=== PATIENT | male | born 1995 | race Caucasian/White ===

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

== ENCOUNTER 2021-05-22 08:40 | Emergency (ER) | payer SELFPAY ==
[~2021-05-22] VITALS: Ht 182 cm; Wt 131.0 kg
--- NOTE | 2021-05-22 09:23 | ED Abdominal Pain ---
General Chief Complaint: Fever-Adult/Adol Stated Complaint: BACK PAIN - FEVER 102 - CONGESTION Source of Information: Patient Exam Limitations: No Limitations (RAFFAELE NELSON STUDENT) History of Present Illness Date Seen by Provider: May 22, 2021 Time Seen by Provider: 09:10 Initial Comments Patient is a 26 year old male who present to the ED with complaints of flank pain, fevers, and epigastric abdominal pain. States the epigastric abdominal pain began approximately 1 week ago. The pain worsens immediately after eating and drinking. Reports taking aleve daily for the last week or so. Describes the pain as dull and achy. Lying still and avoiding eating/drinking decreases the pain. Reports never having anything like this before. Also reports fevers for 3 days up to 102. Reports mild flank pain bilaterally, worse on right. States he's not changed his diet recently although reports eating and drinking less than normal due to not feeling well. Reports decreased urinary output as well. Does not drink or smoke. Denies nausea, vomiting, diarrhea, dysuria, SOB, and chest pain. Timing/Duration: 1 Week Severity/Quality: Moderate Location: Epigastric Radiation: Flank Activities at Onset: None Modifying Factors: Improves With Eating, Improves With Movement, Improves With Palpation Associated Symptoms: Fever/Chills (RAFFAELE NELSON MED STUDENT) Allergies and Home Medications Allergies Coded Allergies: NKANo Known Allergies (Unverified Allergy, Mild, 08/24/08) Patient Home Medication List Home Medication List Reviewed: Yes (DEVANG GORE MD) Atomoxetine Hcl (Strattera) 80 Mg Capsule, (Reported) Entered as Reported by: DARSHANA ADEN on 08/24/081958 Methylphenidate Hcl (Metadate Cd) 40 Mg Cpmp.30.70, (Reported) Entered as Reported by: DARSHANA ADEN on 08/24/081958 Quetiapine Fumarate (Seroquel) 100 Mg Tab, (Reported) Entered as Reported by: DARSHANA ADEN on 08/24/081999 Tramadol HCl (Tramadol HCl) 50 Mg Tablet, 50 MG PO Q6H PRN for PAIN Prescribed by: DEVANG GORE on 05/22/21 1240 Review of Systems Review of Systems Constitutional: see HPI, fever EENTM: No Symptoms Reported; No Blurred Vision, No Double Vision Respiratory: No Symptoms Reported; Denies Cough, Denies Shortness of Air Cardiovascular: No Symptoms Reported; Denies Chest Pain, Denies Edema, Denies Lightheadedness Gastrointestinal: Abdominal Pain; Denies Constipated, Denies Diarrhea, Denies Nausea, Denies Poor Appetite Genitourinary: No Symptoms Reported; Denies Drainage, Denies Frequency Musculoskeletal: no symptoms reported; No back pain, No joint pain Skin: no symptoms reported; No change in color, No change in hair/nails Psychiatric/Neurological: No Symptoms Reported; Denies Anxiety, Denies Depressed Endocrine: No Symptoms Reported; Denies Increased Hunger, Denies Increased Thrist Hematologic/Lymphatic: No Symptoms Reported; Denies Easy Bleeding, Denies Easy Bruising (RAFFAELE NELSON STUDENT) All Other Systems Reviewed Negative Unless Noted: Yes (RAFFAELE NELSON) Past Hcexext-Fcmevz-Uycduw Hx Patient Social History Tobacco Use?: No Smoking Status: Never a Smoker Smokeless Tobacco Frequency: Never a User Use of E-Cig and/or Vaping dev: No Substance use?: No Alcohol Use?: No (RAFFAELE NELSON STUDENT) Immunizations Up To Date Tetanus Booster (TDap): Unknown (RAFFAELE NELSON [employer]) Seasonal Allergies Seasonal Allergies: Yes (RAFFAELE NELSON) Past Medical History Surgeries: No Respiratory: No Cardiac: No Neurological: Yes Traumatic Brain Injury Genitourinary: No Gastrointestinal: No Musculoskeletal: No Endocrine: No HEENT: No Loss of Vision: Denies Hearing Impairment: Denies Cancer: No Psychosocial: No Integumentary: No (REPORTS NUMEROUS LACERATIONS IN HX) Blood Disorders: No (RAFFAELE NELSON STUDENT) Physical Exam Vital Signs Vital Signs - First Documented 05/22/21 08:55 Temp 37.0 Pulse 102 Resp 18 B/P (MAP) 133/84 (100) Pulse Ox 96 (DEVANG GORE MD) Vital Signs Capillary Refill : (RAFFAELE NELSON MED STUDENT) Height/Weight/BMI Height: 5'11.00" Weight: 265lbs. oz. 120.427417ew; 35.15 BMI Method:Stated General Appearance: WD/WN, no apparent distress HEENT: PERRL/EOMI, pharynx normal Neck: non-tender, full range of motion Respiratory: chest non-tender, lungs clear, normal breath sounds Cardiovascular: normal peripheral pulses, regular rate, rhythm, no edema Peripheral Pulses: 2+ Radial Pulses (R), 2+ Radial Pulses (L) Gastrointestinal: normal bowel sounds, soft; No distended, No guarding, No rebound; tenderness (tenderness to palpation in epigastric region) Rectal: deferred Extremities: normal range of motion, non-tender, no pedal edema, no calf tenderness Back: normal inspection, no CVA tenderness Neurologic/Psychiatric: no motor/sensory deficits, alert, normal mood/affect, oriented x 3 Skin: normal color, warm/dry Lymphatic: no adenopathy (Head and neck) (RAFFAELE NELSON MED STUDENT) Progress/Results/Core Measures Results/Orders Lab Results Laboratory Tests Test 05/22/21 09:00 Range/Units White Blood Count 7.4 4.3-11.0 10^3/uL Red Blood Count 5.82 H 4.30-5.52 10^6/uL Hemoglobin 16.7 13.3-17.7 g/dL Hematocrit 49 40-54 % Mean Corpuscular Volume 84 80-99 fL Mean Corpuscular Hemoglobin 29 25-34 pg Mean Corpuscular Hemoglobin Concent 34 32-36 g/dL Red Cell Distribution Width 11.9 10.0-14.5 % Platelet Count 374 130-400 10^3/uL Mean Platelet Volume 9.3 9.0-12.2 fL Immature Granulocyte % (Auto) 0 % Neutrophils (%) (Auto) 49 42-75 % Lymphocytes (%) (Auto) 43 12-44 % Monocytes (%) (Auto) 6 0-12 % Eosinophils (%) (Auto) 2 0-10 % Basophils (%) (Auto) 0 0-10 % Neutrophils # (Auto) 3.6 1.8-7.8 10^3/uL Lymphocytes # (Auto) 3.2 1.0-4.0 10^3/uL Monocytes # (Auto) 0.5 0.0-1.0 10^3/uL Eosinophils # (Auto) 0.1 0.0-0.3 10^3/uL Basophils # (Auto) 0.0 0.0-0.1 10^3/uL Immature Granulocyte # (Auto) 0.0 0.0-0.1 10^3/uL Neutrophils % (Manual) 44 % Lymphocytes % (Manual) 19 % Monocytes % (Manual) 6 % Eosinophils % (Manual) 1 % Basophils % (Manual) 0 % Band Neutrophils 0 % Reactive Lymphocytes 30 % Blood Morphology Comment NORMAL Sodium Level 139 135-145 MMOL/L Potassium Level 3.8 3.6-5.0 MMOL/L Chloride Level 103 98-107 MMOL/L Carbon Dioxide Level 24 21-32 MMOL/L Anion Gap 12 5-14 MMOL/L Blood Urea Nitrogen 10 7-18 MG/DL Creatinine 1.18 0.60-1.30 MG/DL Estimat Glomerular Filtration Rate 88 BUN/Creatinine Ratio 8 Glucose Level 113 H 70-105 MG/DL Calcium Level 10.0 8.5-10.1 MG/DL Corrected Calcium 9.9 8.5-10.1 MG/DL Total Bilirubin 0.7 0.1-1.0 MG/DL Aspartate Amino Transf (AST/SGOT) 36 H 5-34 U/L Alanine Aminotransferase (ALT/SGPT) 49 0-55 U/L Alkaline Phosphatase 39 L 40-136 U/L Total Protein 8.0 6.4-8.2 GM/DL Albumin 4.1 3.2-4.5 GM/DL Lipase 12 8-78 U/L Monoscreen NEGATIVE NEGATIVE Influenza Type A (RT-PCR) Not Detected Not Detecte Influenza Type B (RT-PCR) Not Detected Not Detecte SARS-CoV-2 RNA (RT-PCR) Not Detected Not Detecte (DEVANG GORE MD) My Orders Orders - DEVANG GORE MD Ed Iv/Invasive Line Start (05/22/21:26) Cbc With Automated Diff (05/22/21:26) Comprehensive Metabolic Panel (05/22/21:26) Lipase (05/22/21:26) Covid 19 Inhouse Test (05/22/21:) Influenza A And B By Pcr (05/22/21:) Isolation Central Supply Req (05/22/21:) Ns Iv 1000 Ml (Sodium Chloride 0.9%) (05/22/21 09:45) Ondansetron Injection (Zofran Injectio (05/22/21 09:45) Manual Differential (3/9/22 09:00) Monotest (05/22/21 10:15) Ns Iv 1000 Ml (Sodium Chloride 0.9%) (05/22/21 10:45) Ns Iv 1000 Ml (Sodium Chloride 0.9%) (05/22/21 10:41) Lidocaine 2% Viscous 15 Ml (Xylocaine Vi (05/22/21 11:15) Sucralfate Tablet (Carafate Tablet) (05/22/21 11:15) Antacid Suspension (Mylanta Suspension (05/22/21 11:15) Ketorolac Injection (Toradol Injection) (05/22/21 11:15) Dicyclomine Capsule (Bentyl Capsule) (05/22/21 12:00) Ketorolac Injection (Toradol Injection) (05/22/21 12:00) Chest 1 View, Ap/Pa Only (05/22/21 12:00) Pantoprazole Injection (Protonix Injecti (05/22/21 12:15) (DEVANG GORE MD) Medications Given in ED (DEVANG GORE MD) Vital Signs/I&O 05/22/21 05/22/21 08:55 12:53 Temp 37.0 Pulse 102 88 Resp 18 18 B/P (MAP) 133/84 (100) 122/72 Pulse Ox 96 96 (DEVANG GORE MD) Progress Progress Note #1: Time: 10:59 Progress Note 26yo male to the ER with complaint of abdominal pain, nausea for 1 week, subjective fever. [facility] - tested for flu and covid and strep. All negative, but he said they gave him a "pill" - antibiotic that he only took one dose of - stopped because he "didnt know what it was for". Could not recall the name of it - filled at [facility]. He states eating and drinking make his pain worse. No fevers. Poor urination and BM. No rashes. Mildly sore throat. Not taking any over the counter meds. No prior med history. No surgeries. Family member with "flu" recently. Physical exam remarkable for mild epigastric tenderness. no peritoneal signs. Lungs clear. Dry oral mucosa with mildly erythematous posterior pharynx. Given 2L Fluids in the ER. Zofran and will follow up with a GI cocktail. LAbs reviewed and WNL. VSS. rechecked at this time, and feels "the same". Progress Note #2: Time: 12:03 Progress Note Patient states he got minimal relief from initial toradol and GI cocktail. Points to the very tip of xyphoid as source of pain/painful swallowing. It is very tender to palpation. Sig pain with swallowing. Will give some bentyl and more toradol. Labs reviewed. Chest xray ordered. VSS. possibly esophageal spasm? will add protonix as well. 1231 Chest xray normal. additional meds given. Will send home on PPI, carafate. Im going to give him a little tramadol. Follow up with PCP. Return precautions. No clinical or objective findings to warrant further work up in the ER. Suspect possibly esophagitis/zyphoidalgia vs early ulcer. Will have him continue low dose NSAIDS for now with PPI and take the tramadol. (DEVANG GORE MD) Diagnostic Imaging Diagonstic Imaging: Xray Plain Films/CT/US/NM/MRI: chest Comments [facility], [place] NAME: MARTY SULLIVAN [facility] REC#: [id number] PT STATUS: REG ER : 1995 PHYSICIAN: DEVANG GORE MD ADMIT DATE: 05/22/21/ER Draft Date of Exam:05/22/21 CHEST 1 VIEW, AP/PA ONLY INDICATION: Epigastric pain; painful swallow; fever. COMPARISON: None. FINDINGS: Single frontal view of the chest demonstrates normal heart size and pulmonary vascularity. The lungs are well aerated and clear. No large pleural effusion or pneumothorax is seen. The visualized osseous structures show no acute abnormalities. IMPRESSION: 1. No acute cardiopulmonary process. Dictated on workstation # [id number] Dict: 05/22/21 1214 Trans: 05/22/21 1215 [id number] Interpreted by: ERIKA RUIZ MD Electronically signed by: (DEVANG GORE MD) Departure Impression Primary Impression: Abdominal pain Qualified Codes: R10.13 - Epigastric pain Additional Impression: Xyphoidalgia Disposition: HOME, SELF-CARE Condition: Stable Departure-Patient Inst. Decision time for Depature: 12:37 (DEVANG GORE MD) Referrals: [facility] (PCP/Family) Primary Care Physician Patient Instructions: Abdominal Pain, Adult ED Add. Discharge Instructions: You should take the Aleve, 1 or 2 pills twice a day with food. I would also recommend an over the counter acid marine firer such as generic Prilosec or Pepcid while taking the Aleve. Alternate ice packs with heat to the lower chest are where you are having pain. I have given you a prescription for Tramadol, a pain medication. You can take this every 6 hours as needed for more severe pain. Do not drive and take this medication. Try and push oral fluids. Follow up with a primary care doctor. Return to the ER for any worsening symptoms, blood in your vomit, persistent fever or other new, emergent or concerning symptoms. Scripts Tramadol HCl (Tramadol HCl) 50 Mg Tablet 50 MG PO Q6H PRN for PAIN, #20 TAB 0 Refills Prov: DEVANG GORE MD 05/22/21 Verification and Attestation of Medical Student E/M Service A medical student performed and documented this service in my presence. I reviewed and verified all information documented by the medical student and made modifications to such information, when appropriate. I personally performed the physical exam and medical decision making. Devang Gore, May 22, 2021,11:05 (DEVANG GORE MD) RAFFAELE NELSON MED STUDENT May 22, 2021 09:23 DEVANG GORE MD May 22, 2021 11:04
[2021-05-22 09:38] LABS: BASOPHILS % (AUTO) 0 % (0-10); EOSINOPHILS # (AUTO) 0.1 10^3/uL (0.0-0.3); EOSINOPHILS % (AUTO) 2 % (0-10); HEMATOCRIT 49 % (40-54); HEMOGLOBIN 16.7 g/dL (13.3-17.7); LYMPHOCYTES # (AUTO) 3.2 10^3/uL (1.0-4.0); LYMPHOCYTES % (AUTO) 43 % (12-44); MEAN CORPUSCULAR HEMOGLOBIN 29 pg (25-34); MEAN CORPUSCULAR HGB CONC 34 g/dL (32-36); MEAN CORPUSCULAR VOLUME 84 fL (80-99); MEAN PLATELET VOLUME 9.3 fL (9.0-12.2); MONOCYTES # (AUTO) 0.5 10^3/uL (0.0-1.0); MONOCYTES % (AUTO) 6 % (0-12); NEUTROPHILS # (AUTO) 3.6 10^3/uL (1.8-7.8); NEUTROPHILS % (AUTO) 49 % (42-75); PLATELET COUNT 374 10^3/uL (130-400); WHITE BLOOD COUNT 7.4 10^3/uL (4.3-11.0)
[2021-05-22 09:43] LABS: ALBUMIN 4.1 GM/DL (3.2-4.5); POTASSIUM 3.8 MMOL/L (3.6-5.0)
[2021-05-22] MEDS ORDERED: ONDANSETRON 4 MG/2 ML (SDV) Z0FRAN IVP ONE (09:45)
[2021-05-22] MEDS ORDERED: NS IV 1000 ML 1,000 ML IV SCH ×2 (09:45→10:45)
[2021-05-22 09:47] LABS: BILIRUBIN,TOTAL 0.7 MG/DL (0.1-1.0)
[2021-05-22 09:49] LABS: CREATININE SERUM 1.18 MG/DL (0.60-1.30)
[2021-05-22 10:15] LABS: BAND NEUTROPHILS 0 %; BASOPHILS % (MANUAL) 0 %; EOSINOPHILS % (MANUAL) 1 %; LYMPHOCYTES % (MANUAL) 19 %; MONOCYTES % (MANUAL) 6 %; NEUTROPHILS % (MANUAL) 44 %; RBC MORPH NORMAL; REACTIVE LYMPHOCYTES 30 %
[2021-05-22] MEDS ORDERED: NS IV 1000 ML 1,000 ML ONE (10:41)
[2021-05-22] MEDS ORDERED: LIDOCAINE 2% VISCOUS 15 ML UDC PO ONE (11:15)
[2021-05-22] MEDS ORDERED: SUCRALFATE 1 GM (CARAFATE) TAB PO ONE (11:15)
[2021-05-22] MEDS ORDERED: KETOROLAC 30 MG/ML VIAL IVP ONE ×2 (11:15→12:00)
[2021-05-22] MEDS ORDERED: ANTACID SUSP 30 ML UDC (MYLANTA) PO ONE (11:15)
[2021-05-22] MEDS ORDERED: DICYCLOMINE 10 MG (BENTYL) CAP PO STA (12:00)
[2021-05-22] MEDS ORDERED: PANTOPRAZOLE 40 MG (PROTONIX) VIAL IV ONE (12:15)
--- NOTE | 2021-05-22 12:16 | Diagnostic Imaging Report ---
INDICATION: Epigastric pain; painful swallow; fever. COMPARISON: None. FINDINGS: Single frontal view of the chest demonstrates normal heart size and pulmonary vascularity. The lungs are well aerated and clear. No large pleural effusion or pneumothorax is seen. The visualized osseous structures show no acute abnormalities. IMPRESSION: 1. No acute cardiopulmonary process. Dictated by: Dictated on workstation # [id number]
[2021-05-22] MEDS ORDERED: TRM50T PO (12:40)
[2021-05-22 12:53] VITALS: BP 122/72
== END 2021-05-22 12:57 | disposition home or self-care (01) ==
LOC: EDUNIT# 08:40 → ER 08:42
DX: R10.13 Epigastric pain (principal); M94.9 Disorder of cartilage, unspecified; Z20.822 Contact with and (suspected) exposure to COVID-19
CPT/HCPCS: 36415; 71045; 80053; 83690; 85007; 85025; 85027; 86308; 87636

== ENCOUNTER 2021-08-28 18:46 | Emergency (ER) | payer SELFPAY ==
[~2021-08-28] VITALS: Ht 182 cm; Wt 138.0 kg
[~2021-08-28 18:46] MED LIST changes: +TRM50T PO
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
[2021-08-28] MEDS ORDERED: IBUPROFEN 800 MG (MOTRIN) TAB PO ONE (20:45)
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
[2021-08-28] MEDS ORDERED: IBUP-1780 PO (21:29)
[2021-08-28 21:48] VITALS: BP 146/87
== END 2021-08-28 21:53 | disposition home or self-care (01) ==
LOC: EDUNIT# 18:46 → ER 18:49
DX: M79.605 Pain in left leg (principal); M79.672 Pain in left foot; M25.572 Pain in left ankle and joints of left foot; M79.652 Pain in left thigh; M25.462 Effusion, left knee; M79.89 Other specified soft tissue disorders; V20.4XXA Motorcycle driver injured in collision with pedestrian or animal in traffic accident, initial encounter
CPT/HCPCS: 73502; 73552; 73562; 73610; 73630